=== PATIENT | female | born 1990 | race Caucasian/White ===

== ENCOUNTER 2018-01-05 11:45 | Outpatient (CLI) | END 2018-01-05 14:35 | disposition home or self-care (01) ==

== ENCOUNTER 2018-01-12 10:49 | Outpatient (CLI) | END 2018-01-12 14:35 | disposition home or self-care (01) ==

== ENCOUNTER 2018-01-15 13:15 | Inpatient (IN) | END 2018-01-21 11:15 | disposition home or self-care (01) | DRG 766 ==